=== PATIENT | female | born 1950 | race Caucasian/White ===

== ENCOUNTER 2021-08-12 09:11 | Emergency (ER) | payer MEDICARE ==
[~2021-08-12] VITALS: Ht 160 cm; Wt 56.7 kg
[2021-08-12] MEDS ORDERED: ESCI10TA PO (09:17)
[2021-08-12] MEDS ORDERED: ACET-2154 PO (10:11)
[2021-08-12] MEDS ORDERED: OXYC-128 PO (10:11)
--- NOTE | 2021-08-12 10:16 | NUR ---
TEST RESULTS EXPLAINED BY DR BARRERA TO PT AND DAUGHTER. DISCHARGE INSTRUCTIONS GIVEN BY .
== END 2021-08-12 10:19 | disposition home or self-care (01) ==
LOC: ER 09:11
DX: R07.81 Pleurodynia (principal); Z79.899 Other long term (current) drug therapy; W18.39XA Other fall on same level, initial encounter; Y93.89 Activity, other specified; Y92.89 Other specified places as the place of occurrence of the external cause; Y99.8 Other external cause status
CPT/HCPCS: 71101; A4663